=== PATIENT | male | born 1955 | race Caucasian/White ===

== ENCOUNTER 2017-08-29 23:52 | Emergency (ER) | payer MEDICARE, OTHER ==
--- NOTE | 2017-08-30 | ERNOTE ---
Dyspnea - General Presenting Symptoms: shortness of breath, wheezing Time Seen by Provider: 08/29/17 23:55 Source: patient, EMS Exam Limitations: clinical condition - Immun/Allergies/Home Medications Immunizations: IMMUNIZATION HX Immunizations Up to Date Yes Allergies/Adverse Reactions: Allergies Penicillins Allergy (Verified 08/30/17 00:02) Home Medications: HOME MEDICATIONS FLUoxetine HCL [Prozac] 40 mg PO DAILY 08/03/14 [Last Taken Unknown] Simvastatin [Zocor] 20 mg PO HS 08/03/14 [Last Taken Unknown] Albuterol Sulfate [Albuterol Sulfate 2.5 MG/0.5ML] 1 vial IH Q4H PRN 06/05/15 [ Last Taken Unknown] Tiotropium [place] [Spiriva] 1 cap IH DAILY 06/05/15 [Last Taken Unknown] Clindamycin HCl [Cleocin HCl] 300 mg PO QID #30 capsule 08/14/15 [Last Taken Unknown] Lisinopril 5 mg PO DAILY 08/14/15 [Last Taken Unknown] Tamsulosin HCl [Flomax] 0.4 mg PO DAILY 08/14/15 [Last Taken Unknown] Vitamin B Complex/Minerals [Sm Stress Formula+Zinc Tablet] 1 each PO DAILY 08/14 [Last Taken Unknown] Azithromycin 250 mg PO DAILY #6 tablet 08/30/17 [Last Taken Unknown] Methylprednisolone [Medrol Dosepak] 4 mg PO DAILY #21 tab.ds.pk 08/30/17 [Last Taken Unknown] - History of Present Illness Narrative: Pt was at a local club and became short of breath. He reported that he might be having a stroke but when EMS arrived they found no new neurologic deficits and he was short of breath with wheezing lung sounds. They started a nebulized breathing treatment en route Severity: moderate Treatment [employer]: paramedics, albuterol Initiating event: Reports: unknown Frequency of episodes: Reports: occassional episodes Modifying Factors - (Improves): Reports: albuterol Review of Systems - Review of Systems Constitutional: Absent: recent illness, fever EYE: Present: no symptoms reported ENT: Present: no symptoms reported Respiratory: Present: shortness of breath, wheezing. Absent: cough Cardiology: Absent: no symptoms reported Gastrointestinal/Abdominal: Absent: nausea, vomiting Genitourinary: Present: no symptoms reported Musculoskeletal: Present: joint pain - hips (chronic) Skin: Present: no symptoms reported Neurological: Present: no symptoms reported Endocrine: Present: no symptoms reported Hematologic/Lymphatic: Present: no symptoms reported Psych: Present: no symptoms reported - Patient's Past Medical History Patient History - Medical: No pertinent hx Patient History - Cardiac/Respiratory: COPD, CVA/Stroke - left side - Immunizations Immunizations Up to Date: Yes Physical Exam - Physical Exam General Appearance: Present: wd/wn, alert, mild distress Head Exam: Present: normal inspection, no evidence of injury Eye Exam: Normal inspection: bilateral, PERRL: bilateral, EOMI: bilateral Ears, Nose, Throat: Present: normal ENT inspection Neck: Present: normal inspection, nontender Respiratory: Present: no respiratory distress, chest nontender, wheezing Cardiovascular/Chest: Present: regular rate, rhythm, no murmur, normal peripheral pulses Gastrointestinal/Abdominal: Present: normal bowel sounds, nontender Extremity Exam: Present: normal inspection, normal range of motion, no edema Neurological Exam: Present: alert, oriented, normal mood/affect, no motor/ sensory deficits Skin Exam: Present: normal color, warm/dry Lymphatic Exam: Present: no adenopathy ED Progress - Results and Orders Patient's Lab Results:: I have reviewed the patient's lab results. Results and Orders: Laboratory Tests 08/29/17 08/29/17 08/29/17 00:19 00:19 00:19 WBC 13.3 H Hgb 15.4 Hct 48.6 Plt Count 380 Neutrophils # 7.4 H D-Dimer 0.75 H pCO2 pO2 HCO3 Total CO2 Base Excess ABG pH ABG O2 Sat (Measured) Sodium 143 H Potassium 3.2 L Chloride 102 Carbon Dioxide 26.0 BUN 9 Creatinine 1.02 Random Glucose 119 H Calcium 9.1 Total Bilirubin 0.2 AST 21 ALT 28 Alkaline Phosphatase 79 B-Natriuretic Peptide 96 Total Protein 8.1 Albumin 3.9 08/29/17 23:55 WBC Hgb Hct Plt Count Neutrophils # D-Dimer pCO2 38.1 pO2 61.6 L HCO3 20.8 L Total CO2 22.0 Base Excess -4.1 L ABG pH 7.36 ABG O2 Sat (Measured) 90.8 L Sodium Potassium Chloride Carbon Dioxide BUN Creatinine Random Glucose Calcium Total Bilirubin AST ALT Alkaline Phosphatase B-Natriuretic Peptide Total Protein Albumin - Vital Signs Patient's Vital Signs:: I have reviewed the patient's vital signs. - X-Ray X-Ray #1 X-Ray: chest Interpretation: Interp. by me X-ray Comments: no infiltrate or effusion. - CT/Ultrasound CT/Ultrasound Narrative: No PE Thoracic aorta and coronary Artery atherosclerosis. Slight anterior pericardial thickening mucous debris right trachea 1.3 cm ill-defined non calcified subpleural soft tissue nodule RUL. small epigastric ventral hernia contains fat only - Progress/Reassessment Progress Note-Subjective: 08/30/17 00:59 Pt initially told the nurse that he did not want a CT because he had a CT at the [facility] 2 weeks ago. I explained to him that with symptoms of sudden onset of shortness of breath and an elevated d-dimer there is a risk that he has a clot in his lung. He then agreed to the CTA. Departure Clinical Impression: Bronchitis - Departure Disposition: Home Follow Up Needed Condition: Good Instructions: Acute Bronchitis, [id number] Prescriptions: Azithromycin 250 mg PO DAILY #6 tablet Methylprednisolone [Medrol Dosepak] 4 mg PO DAILY #21 tab.ds.pk
[2017-08-30 00:19] LABS: Hematocrit 48.6 % (42.0-52.0); Hemoglobin 15.4 gm/dL (13.5-18.0); Mean Cell Volume 88.4 fl (78-100); Mean Corpuscular Hgb Conc 31.7 g/dl (32-36); Mean Platelet Volume 9.9 fl (6.0-9.5); Neutrophil # 7.4 K/mm3 (1.3-6.0); Neutrophil % 55.5 % (42-75.0); Platelet Count 380 K/mm3 (150-450); Red Cell Distribution Width 13.8 % (11.5-14.0); White Blood Count 13.3 K/mm3 (4.0-10.5)
[2017-08-30 00:40] LABS: Albumin * 3.9 gm/dl (3.4-5.0); Anion Gap 18.2 mmol/L (6.8-13.8); BUN/Creatinine Ratio 8.8 (9.0-21.6); Bilirubin, Total 0.2 mg/dL (0.0-1.1); Ca. Corrected For Albumin 8.9 mg/dL (8.4-10.2); Calcium * 9.1 mg/dL (7.9-10.9); Potassium 3.2 mmol/L (3.4-4.6); Total Protein 8.1 gm/dL (6.2-8.2)
[2017-08-30 02:16] VITALS: BP 126/72
== END 2017-08-30 02:15 | disposition home or self-care (01) ==
LOC: ER 23:52
DX: J40 Bronchitis, not specified as acute or chronic (principal)